=== PATIENT | male | born 1985 | race Caucasian/White ===

== ENCOUNTER 2025-01-13 19:58 | Emergency (ER) | payer OTHER ==
[2025-01-13] MEDS: Ketorolac 15 MG/ML SDV IM ONE (21:00)
== END 2025-01-13 21:25 | disposition home or self-care (01) ==
LOC: JP.ED 19:58
DX: M54.42 Lumbago with sciatica, left side (principal); Z88.2 Allergy status to sulfonamides; Z86.16 Personal history of COVID-19
CPT/HCPCS: 96372; 99283; J1885